=== PATIENT | female | born 1990 | race American Indian/Alaskan Native ===

== ENCOUNTER 2020-09-23 18:23 | Emergency (ER) | payer MEDICAID, OTHER ==
[2020-09-23] MEDS ORDERED: Acetaminophen 325 MG Tab PO ONE ×2 (18:24→20:54)
[2020-09-23] MEDS ORDERED: cefTRIAXone 500 MG, Lidocaine 1% 1 ML IM ONE ×2 (20:30)
[2020-09-23] MEDS ORDERED: Azithromycin 250 MG Tab PO ONE (20:30)
[2020-09-23 20:33] LABS: ANION GAP 13.1 mEq/L (7-13); CHLORIDE,CL 105 mmol/L (98-107); SODIUM,NA 143 mmol/L (136-145)
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
[2020-09-23] MEDS ORDERED: Acetaminophen 325 MG Tab ONE (21:06)
[2020-09-25 11:46] LABS: C.TRACHOMATIS BY TMA Positive (Negative); N.GONORRHOEAE BY TMA Negative (Negative)
== END 2020-09-23 21:12 | disposition home or self-care (01) ==
LOC: DL.ED 18:23
DX: N39.0 Urinary tract infection, site not specified (principal); F15.11 Other stimulant abuse, in remission; Z72.0 Tobacco use; Z91.048 Other nonmedicinal substance allergy status; Z88.6 Allergy status to analgesic agent
CPT/HCPCS: 36415; 80053; 80305; 81001; 81025; 85025; 87491; 87591; 96372; 99283; 99284; A9270; J0696